=== PATIENT | male | born 1950 | race Caucasian/White ===

== ENCOUNTER → 2016-08-07 | Outpatient (CLI) | payer OTHER | LOC: FIMAGING 10:10 | PROVIDERS: ATTEND Neurological Surgery | DX: M54.16 Radiculopathy, lumbar region (principal); M43.16 Spondylolisthesis, lumbar region; Z98.1 Arthrodesis status ==

== ENCOUNTER → 2017-05-14 | Outpatient (CLI) | payer OTHER | LOC: FIMAGING 10:36 | PROVIDERS: ATTEND Neurological Surgery | DX: M43.16 Spondylolisthesis, lumbar region (principal); Z98.1 Arthrodesis status ==

== ENCOUNTER → 2017-06-29 | Outpatient (CLI) | payer OTHER ==
[~2017-06-29] MED LIST: GADOBUTROL 10 ML VIAL IVP ONE
== END ==
LOC: FIMAGING 10:11
PROVIDERS: ATTEND Physician Assistant Surgical
DX: M48.061 Spinal stenosis, lumbar region without neurogenic claudication (principal); M99.73 Connective tissue and disc stenosis of intervertebral foramina of lumbar region; M54.6 Pain in thoracic spine; Z98.1 Arthrodesis status
CPT/HCPCS: 72074; 72158; A9585

== ENCOUNTER 2018-02-18 09:16 | Inpatient (IN) | payer OTHER ==
--- NOTE | 2018-02-18 08:56 | PDANEPAE ---
ANE Past Medical History - Cardiovascular History Hx Hypertension: Yes Hx Arrhythmias: No Hx Chest Pain: No Hx Coronary Artery / Peripheral Vascular Disease: No Hx CHF / Valvular Disease: Yes Hx Palpitations: No Cardiovascular History Comment: benign heart murmur. - Pulmonary History Hx COPD: No Hx Asthma/Reactive Airway Disease: No Hx Recent Upper Respiratory Infection: No Hx Oxygen in Use at Home: No Hx Sleep Apnea: No Sleep Apnea Screening Result - Last Documented: Positive Pulmonary History Comment: Chronic sinus jaswinder & drainage. 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 - Cancer History Hx Cancer: No - Congenital Disorder History Hx Congenital Disorders: No - GI History GERD: no Hx Gastrointestinal Disorders: No - Other Health History Other Health History: Ringing both ears. 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 Several missing teeth. - Chronic Pain History Chronic Pain: Yes (back, joints.) - Surgical History Prior Surgeries: lumbar surgery 2015. 1986-R knee scope. 1991-Growth removed chest. 1998-R ing hernia. 2012-growth L axilla. ANE Review of Systems Review of Systems: - Exercise capacity Exercise capacity: >=4 METS, limited by disability METS (RN): 4 METS ANE Patient History - Allergies Allergies/Adverse Reactions: Sulfa (Sulfonamide Antibiotics) Allergy (Intermediate, Verified 05/18/14 11:14) Flushing horse serum Allergy (Mild, Uncoded 05/18/14 11:14) Unknown - Home Medications Home Medications: Aspirin [Aspirin 81mg (*)] 81 mg PO DAILY 02/05/18 [Last Taken 02/11/18] Cetirizine [ZyrTEC 10 mg (*)] 10 mg PO DAILY 02/05/18 [Last Taken 02/17/18 09:00 ] Cholecalciferol Vit D3 [Vitamin D3 2000 units tab (OTC)] 2,000 units PO DAILY [Last Taken 02/11/18] Cyclobenzaprine [Flexeril 10 MG (*)] 10 mg PO HS 02/05/18 [Last Taken 02/17/18] Dextroamphetamine/Amphetamine [Adderall Xr 25 mg Capsule] 50 mg PO DAILY [Last Taken 02/17/18 09:00] Fluticasone Nasal [Flonase Nasal [place] (RX)] 2 sprays NASAL HS 02/05/18 [Last Taken 02/17/18] Herbals/Supplements -Info Only 1 ea PO DAILY 02/05/18 [Last Taken 02/11/18] Lisinopril [Zestril 20 mg (*)] 20 mg PO BID 02/05/18 [Last Taken 02/17/18 08:00] Magnesium Oxide [Magnesium Oxide 400 mg (*)] 400 mg PO DAILY@12 02/05/18 [Last Taken 02/11/18] Melatonin [Melatonin 5 mg] 5 mg PO HS 02/05/18 [Last Taken 02/17/18] Naproxen Sodium [Naproxen Cr] 500 mg PO BID 02/05/18 [Last Taken 02/11/18] [place]-3 Fatty Acids [Fish Oil 1000 mg (*)] 1,000 mg PO DAILY 02/05/18 [Last Taken 02/11/18] Rosuvastatin Calcium [Crestor 10mg (RX)] 10 mg PO HS 02/05/18 [Last Taken ] Tamsulosin HCl [Flomax 0.4 MG (*)] 0.4 mg PO BID 02/05/18 [Last Taken 02/18/18 08:00] Vitamin B Complex [Vitamin B Complex (OTC)] 1 each PO HS 02/05/18 [Last Taken ] - Anes Hx Anes Hx: no prior problems - Smoking Hx Smoking Status: Never smoked Marijuana use: No - Alcohol Use Alcohol Use: Occasionally - Family Anes Hx Family Anes Hx: neg - N/A Family Hx Anesthesia Complications: none ANE Labs/Vital Signs - Vital Signs Height: 170.18 cm Weight: 90.718 kg ANE Physical Exam - Airway Neck exam: FROM Mallampati Score: Class 1 Mouth exam: normal dental/mouth exam - Pulmonary Pulmonary: no respiratory distress, no rales or rhonchi, clear to auscultation - Cardiovascular Cardiovascular: regular rate and rhythym, no murmur, rub, or gallop - ASA Status ASA Status: II ANE Anesthesia Plan Anesthesia Plan: general endotracheal anesthesia Total IV Anesthesia: No
[~2018-02-18 09:16] MED LIST changes: -GADOBUTROL 10 ML VIAL IVP ONE; +TRANEXAMIC ACID 1,000 MG in NS 100 ML IV ONE
[2018-02-18] MEDS ORDERED: BUPIVACAINE 0.25% 30 ML SDV ONE (09:17)
[2018-02-18] MEDS ORDERED: THROMBIN (BOVINE) 20,000 UNIT VIAL TP ONE (09:17)
[2018-02-18] MEDS ORDERED: CITRATE DEXTROSE SOLN 500 ML BAG ONE (09:17)
[2018-02-18] MEDS ORDERED: CHLORHEXIDINE GLUC HIBICLENS 118 ML BTL TP ONE (09:17)
[2018-02-18] MEDS ORDERED: EPINEPHrine 1 MG/ML INJ ONE (09:18)
[2018-02-18] MEDS ORDERED: BACITRACIN 50,000 UNITS/10 ML SYR IRR ONE ×2 (09:18→13:34)
[2018-02-18] MEDS ORDERED: GABAPENTIN 300 MG CAP PO ONE (09:26)
[2018-02-18] MEDS ORDERED: fentaNYL 50 MCG in SYRINGE INTRATHECAL 1 SYR IT ONE (09:26)
[2018-02-18] MEDS ORDERED: ACETAMINOPHEN 500 MG TAB PO ONE (09:26)
[2018-02-18] MEDS ORDERED: ceFAZolin 2 GM/DEXTROSE 100 ML IV ONE (09:26)
[2018-02-18] MEDS ORDERED: morphINE PF 0.2 MG in SYRINGE INTRATHECAL 1 SYR IT ONE (09:26)
[2018-02-18] MEDS ORDERED: LR 1,000 ML IV ONE (09:27)
[2018-02-18] MEDS ORDERED: LIDOCAINE 1% 2 ML INJ ID PRN (09:27)
[2018-02-18] MEDS ORDERED: REMIFENTANIL HCL 1 MG VIAL ONE ×2 (09:44→13:20)
--- NOTE | 2018-02-18 09:54 | PDHPUP ---
History & Physical Update H&P update statement: This history and physical update is based on an assessment of the patient which was completed after admission or registration (within 24 hours), but prior to the surgery/procedure. H&P update: H&P reviewed & patient examined, no change in patient's condition since H&P completed
[2018-02-18] MEDS ORDERED: ROCURONIUM 50 MG/5 ML VIAL ONE (10:33)
[2018-02-18] MEDS ORDERED: fentaNYL 100 MCG/2 ML INJ ONE (10:33)
[2018-02-18] MEDS ORDERED: ONDANSETRON 4 MG/2 ML VIAL ONE (10:33)
[2018-02-18] MEDS ORDERED: DEXAMETHASONE 4 MG/ML VIAL ONE (10:33)
[2018-02-18] MEDS ORDERED: PROPOFOL 200 MG/20 ML VIAL ONE (10:38)
[2018-02-18] MEDS ORDERED: LIDOCAINE 2% 2 ML INJ ONE ×2 (10:38)
[2018-02-18] MEDS ORDERED: THROMBIN (BOVINE) 5,000 UNIT VIAL TP ONE (11:03)
[2018-02-18] MEDS ORDERED: ePHEDrine SULFATE 25 MG/5 ML SYR ONE ×2 (11:16→11:34)
[2018-02-18] MEDS ORDERED: NEOSTIGMINE METHYLSULFATE 5 MG/5 ML SYR ONE (11:16)
[2018-02-18] MEDS ORDERED: PHENYLEPHRINE HCL 100 MCG/ML SYR ONE ×2 (11:25→13:08)
[2018-02-18] MEDS ORDERED: ACETAMINOPHEN 500 MG TAB PO PRN (11:28)
[2018-02-18] MEDS ORDERED: HYDROCODONE/APAP 5/325 TAB PO PRN (11:28)
[2018-02-18] MEDS ORDERED: LR 500 ML IV PRN (11:28)
[2018-02-18] MEDS ORDERED: oxyCODONE IR 5 MG TAB PO PRN (11:28)
[2018-02-18] MEDS ORDERED: NALOXONE HCL 0.4 MG/ML INJ IVP PRN ×2 (11:28→14:49)
[2018-02-18] MEDS ORDERED: fentaNYL 100 MCG/2 ML INJ IVP PRN (11:28)
[2018-02-18] MEDS ORDERED: ENALAPRILAT DIHYDRATE 1.25 MG/ML VIAL IVP PRN (11:28)
[2018-02-18] MEDS ORDERED: ONDANSETRON 4 MG/2 ML VIAL IVP PRN ×2 (11:28→14:49)
[2018-02-18] MEDS ORDERED: PROMETHAZINE HCL 25 MG/ML INJ IVP PRN (11:28)
[2018-02-18] MEDS ORDERED: DIAZEPAM 5 MG/ML 1 ML SYR IVP PRN (11:28)
[2018-02-18] MEDS ORDERED: PHENYLEPHRINE HCL 100 MCG/ML SYR IVP PRN (11:28)
[2018-02-18] MEDS ORDERED: VASOPRESSIN 20 UNIT/ML VIAL ONE (11:37)
[2018-02-18] MEDS ORDERED: PROPOFOL/EMULSION 500 MG/50 ML BOTTLE IV ONE (13:20)
[2018-02-18] MEDS ORDERED: ALBUMIN 5% 250 ML BOTTLE IV ONE (13:21)
[2018-02-18] MEDS ORDERED: PHENYLEPHRINE 10 MG/ML SDV ONE (13:37)
[2018-02-18] MEDS ORDERED: ceFAZolin 1 GM VIAL ONE (13:38)
--- NOTE | 2018-02-18 14:14 | ASMTCMCOM ---
CM Note CM Note Notes: Received a notification from Dottie Acosta at [facility] #[phone] stating they are following patient and able to accept if HH warranted post surgery. Will follow-up with patient when he reaches the floor after surgery. Plan: Potentially home with [facility] Date Signed: 02/18/2018 02:14 PM Electronically Signed By:Kell Salmeron RN
[2018-02-18] MEDS ORDERED: BISACODYL 10 MG SUPP PR PRN (14:49)
[2018-02-18] MEDS ORDERED: ONDANSETRON DISINTEGRATING 4 MG TAB PO PRN (14:49)
[2018-02-18] MEDS ORDERED: LACTULOSE 20 GM/30 ML UDCUP PO PRN (14:49)
[2018-02-18] MEDS ORDERED: MAGNESIUM HYDROXIDE 30 ML UDCUP PO PRN (14:49)
[2018-02-18] MEDS ORDERED: diphenhydrAMINE 25 MG CAP PO PRN (14:49)
[2018-02-18] MEDS ORDERED: morphINE PCA 30 MG/30 ML PCA IV PRN (14:49)
[2018-02-18] MEDS ORDERED: DIAZEPAM 5 MG TAB PO PRN (14:53)
--- NOTE | 2018-02-18 14:58 | SOAPPROG ---
SOAP Progress Note Assessment/Plan: Assessment: 68 yo M sp L4/5 hardware removal, L2/3, L3/4 TLIF, L2-5 fusion Plan: stable PT/OT to 3N please call with neuro changes 02/18/18 14:54 Subjective: + back pain, no leg pain Objective: Vital Signs Temp Pulse Resp BP Pulse Ox 36.8 C 85 20 149/92 H 94 02/18/18 10:27 02/18/18 10:27 02/18/18 10:27 02/18/18 10:27 02/18/18 10:27 somnolent PERRL, no facial droop BENY x 4 + light touch ICD10 Worksheet Patient Problems: Problems Problem Status Onset Fusion of spine of lumbar region Acute - ICD10 Problem Qualifiers (1) Fusion of spine of lumbar region
[2018-02-18] MEDS ORDERED: NS 1,000 ML IV SCH (15:00)
--- NOTE | 2018-02-18 15:01 | POSTANESTH ---
Post Anesthetic Evaluation Cardiovascular Status: Normal, Stable, Other, See Comment (sinus tachycardia 101 -108. normal BP) Respiratory Status: Normal, Stable Level of Consciousness/Mental Status: Can Participate in Eval Pain Control: Adequate, Prn Tx Ordered Nausea/Vomiting Control: Adequate, Prn Tx Ordered Complications Possibly Related to Anesthesia: None Noted
--- NOTE | 2018-02-18 15:04 | GOP ---
DATE OF OPERATION: 02/18/2018 SURGEON: Jules Weiss MD NEUROSURGEON: Jules Weiss MD FORMS EXAMINER: SHAREE Tenorio ANESTHESIA: General endotracheal. PREOPERATIVE DIAGNOSIS: Severe adjacent level degeneration and critical spinal stenosis at L2-3 and L3-4. Status post prior L4-5 decompression stabilization with instrumentation. Intractable back catrachita n and left, greater than right lower extremity radicular and neurogenic claudication symptoms. Faile d conservative care. POSTOPERATIVE DIAGNOSIS: Severe adjacent level degeneration and critical spinal stenosis at L2-3 and L3-4. Status post prior L4-5 decompression stabilization with instrumentation. Intractable back pa in and left, greater than right lower extremity radicular and neurogenic claudication symptoms. Fail ed conservative care. PROCEDURE PERFORMED: Removal of posterior nonsegmental (pedicle screw) fixation at L4-5 with explora tion of spinal fusion at that level and re-instrumentation with posterior segmental (pedicle screw an d axle device) fixation from L2-L5. Left-sided far lateral transpedicular decompressions at the L2-3 and L3-4 levels with a redo left L4-5 posterior hemilaminectomy, facetectomy, and foraminotomy. L2- 3 and L3-4 posterior/transforaminal lumbar interbody fusion with 2 structural PEEK interbody spacers, local autograft and bone morphogenic protein at each level. L2-L5 posterolateral fusion with local autograft, bone morphogenic protein and morselized allograft. Use of intraoperative microscopy fluor oscopy and computer volumetric stereotactic navigation with intraoperative neurophysiologic testing. Injection of intrathecal narcotic analgesics and subcutaneous and intramuscular local anesthesia for postoperative pain control. FINDINGS: ESTIMATED BLOOD LOSS: 300 cc. INDICATIONS: The patient is a 68-year-old male with intractable low back pain and left greater than right lower extremity radicular and neurogenic claudication symptoms, secondary to severe adjacent le mahsa degeneration at the L2-3 and L3-4 levels, status post prior L4-5 decompression and fusion with st abilization and instrumentation. The patient has failed extensive conservative care and presents now for surgical decompression and stabilization at the adjacent levels and removal and replacement of h ardware. DESCRIPTION OF PROCEDURE: After informed consent was obtained, the patient was taken to the operatin g room and placed in the prone position on the Carlton table. The lumbosacral area was prepped and d raped in sterile fashion, and after fluoroscopic localization of the correct level, the subcutaneous and intramuscular tissues were infiltrated with local anesthesia. A midline linear incision was then created over the L2 to L5 areas. This was carried down to the fas cial layer, which was then incised using monopolar electrocautery, and carried in the subperiosteal p marysol along the spinous processes and lamina bilaterally. Intraoperative fluoroscopy was again utiliz ed to verify the correct levels. Following this, the prior instrumentation was carefully exposed and removed at L4-5 (pedicle screws a nd yumiko). The axle device was left in place. The microscope was then brought in and left-sided far l ateral transpedicular decompressions were performed at the L2-3 and L3-4 levels with a redo posterior hemilaminectomy and foraminotomy at the L4-5 level. The dissection was carried out over the facet j oints at these levels. The [employer] neuronavigational system was then brought in and using computer volumetric stereotactic n avigation, pedicle screws were placed at L2, L3, and L4 bilaterally and a replacement screw at L5 on the left. The short rods were individually placed first at L2-3 and then at L3-4, during which time, they were under distraction and complete diskectomies were performed with preparation of endplates a nd placement of 2 structural PEEK interbody spacers, local autograft and bone morphogenic protein at each level for L2-3 and L3-4 posterior/transforaminal lumbar interbody fusions. The short rods were removed and longer rods were then placed extending from L2-L5, and a slight amount of compression was placed across the interspaces to facilitate bony union and to minimize the potential for posterior g raft migration. The wound was copiously irrigated with antibiotic irrigation. An axial device was then placed at the L2-3 level for added fixation given that we placed smaller, weaker screws at the L2 levels bilateral ly (5.5 mm diameter). The remaining facet joints and lamina were extensively decorticated from L2 to L5, and the residual local autograft, along with bone morphogenic protein and morselized allograft w as placed out laterally from L2 to L5 for posterolateral fusion. 200 mcg of Duramorph, along with 50 mcg of fentanyl were then injected intrathecally. The subcutaneo us and intramuscular tissues were also re-infiltrated with local anesthesia for postoperative pain co ntrol. A drain was placed, and after re-verification of good position of the screws, rods, interbody spacers, and interspinous process clamp using biplane fluoroscopy, the drain was placed, and the wou nd was closed in a layered fashion using interrupted Vicryl sutures, followed by Steri-Strips on the skin. COMPLICATIONS: None. DISPOSITION: The patient is currently in the process of being repositioned for extubation. /[id number]/MODL
--- NOTE | 2018-02-18 15:04 | PDMN ---
Medical Necessity Medical necessity: 68 yo s/p L2-5 Fusion w/ hardware removal, CPT 62867 MCG S530 Removal of Posterior Spinal Instrumentation and 18253 MCG S820 Lumbar Fusion pending, IP Only
[2018-02-18] MEDS: POLYETHYLENE GLYCOL 3350 17 GM PKT PO SCH ×2 (17:31→21:13)
[2018-02-18] MEDS: morphINE SR 15 MG TAB PO SCH (21:11)
[2018-02-18] MEDS: FAMOTIDINE 20 MG TAB PO SCH (21:11)
[2018-02-18] MEDS: TAMSULOSIN HCL 0.4 MG CAP PO SCH (21:12)
[2018-02-18] MEDS: LISINOPRIL 20 MG TAB PO SCH (21:12)
[2018-02-18] MEDS: SENNOSIDES/DOCUSATE SODIUM TAB PO SCH (21:13)
[2018-02-18] MEDS: ROSUVASTATIN CALCIUM 10 MG TAB PO SCH (21:13)
[2018-02-18] MEDS: ceFAZolin 2 GM/DEXTROSE 100 ML IV SCH (21:17)
[2018-02-18] MEDS: FLUTICASONE NASAL 120 SPRAYS/16 GM MDI EACHNARE SCH (21:20)
[2018-02-19] MEDS: ceFAZolin 2 GM/DEXTROSE 100 ML IV SCH (05:06)
[2018-02-19 05:12] LABS: PLATELET COUNT 231 10^3/uL (150-400)
--- NOTE | 2018-02-19 08:44 | SOAPPROG ---
SOAP Progress Note Assessment/Plan: Assessment: 68 yo M POD #1 L4/5 hardware removal, L2/3, L3/4 TLIF, L2-5 fusion Plan: neuro: stable and doing well overall :) PT/OT LSO brace when out of bed scd/gt/lovenox for dvt prophylaxis post op x-rays pending please call with neuro changes 02/18/18 14:54 02/19/18 08:43 Subjective: leg pain better, some back pain, no weakness. Objective: Vital Signs Temp Pulse Resp BP Pulse Ox 37.0 C 74 18 102/62 96 02/19/18 07:47 02/19/18 07:47 02/19/18 07:47 02/19/18 07:47 02/19/18 07:47 Laboratory Results 02/19/18 04:37 02/19/18 04:37 02/18/18 02/19/18 02/20/18 05:59 05:59 05:59 Intake Total 4120 Output Total 2305 765 Balance 1815 -765 AAOx4, +FC PERRL, EOMI, no facial droop 5/5 + light touch C/D/I ICD10 Worksheet Patient Problems: Problems Problem Status Onset Fusion of spine of lumbar region Acute - ICD10 Problem Qualifiers (1) Fusion of spine of lumbar region
[2018-02-19] MEDS: SENNOSIDES/DOCUSATE SODIUM TAB PO SCH ×2 (09:26→20:45)
[2018-02-19] MEDS: FAMOTIDINE 20 MG TAB PO SCH ×2 (09:27→20:45)
[2018-02-19] MEDS: CETIRIZINE 10 MG TAB PO SCH (09:27)
[2018-02-19] MEDS: TAMSULOSIN HCL 0.4 MG CAP PO SCH ×2 (09:28→20:45)
[2018-02-19] MEDS: morphINE SR 15 MG TAB PO SCH ×2 (09:28→20:45)
[2018-02-19] MEDS: LISINOPRIL 20 MG TAB PO SCH ×2 (09:29→20:45)
[2018-02-19] MEDS: DEXTROAMPHETAMINE PO SCH (09:31)
[2018-02-19] MEDS: AMPHETAMINE PO SCH (09:31)
[2018-02-19] MEDS: POLYETHYLENE GLYCOL 3350 17 GM PKT PO SCH ×3 (09:31→20:45)
[2018-02-19] MEDS: ENOXAPARIN 40 MG/0.4 ML SYR SC SCH (09:44)
--- NOTE | 2018-02-19 11:19 | ASMTCMCOM ---
CM Note CM Note Notes: Pt had planned surgery for lumbar DJD and stenosis. Spoke with pt and spouse about HHC, they decline. Pt reports this is his second back surgery and he feels comfortable going to outpatient PT when MD rec. PT rec home/outpatient, OT rec home. Anticipate pt will d/c when medically stable. Likely no CM d/c needs. Date Signed: 02/19/2018 11:19 AM Electronically Signed By:DONNELL Gil
[2018-02-19] MEDS: MAGNESIUM OXIDE 400 MG TAB PO SCH (12:40)
[2018-02-19] MEDS: FLUTICASONE NASAL 120 SPRAYS/16 GM MDI EACHNARE SCH (20:45)
[2018-02-19] MEDS: ROSUVASTATIN CALCIUM 10 MG TAB PO SCH (20:45)
[2018-02-19] MEDS: MELATONIN 5 MG PO SCH (20:45)
[2018-02-20] MEDS: oxyCODONE IR 5 MG TAB PO PRN ×5 (04:22→20:56)
[2018-02-20] MEDS: METHOCARBAMOL 750 MG TAB PO PRN ×3 (04:22→16:20)
--- NOTE | 2018-02-20 08:08 | SOAPPROG ---
SOAP Progress Note Assessment/Plan: Assessment: 68 yo M POD #2 L4/5 hardware removal, L2/3, L3/4 TLIF, L2-5 fusion Plan: neuro: stable and doing well overall :) PT/OT LSO brace when out of bed scd/gt/lovenox for dvt prophylaxis post op x-rays show good position of the hardware please call with neuro changes 02/18/18 14:54 02/19/18 08:43 02/20/18 08:07 Subjective: continued back pain, some pain in left thigh after catching foot while walking yesterday. Objective: Vital Signs Temp Pulse Resp BP Pulse Ox 37.2 C 84 17 113/73 91 L 02/20/18 07:44 02/20/18 07:44 02/20/18 07:44 02/20/18 07:44 02/20/18 07:44 Laboratory Results 02/19/18 04:37 02/19/18 04:37 02/19/18 02/20/18 02/21/18 05:59 05:59 05:59 Intake Total 4120 250 Output Total 2305 1445 Balance 1815 -1195 AAOx4, +FC PERRL, EOMI, no facial droop 5/5 + light touch C/D/I ICD10 Worksheet Patient Problems: Problems Problem Status Onset Fusion of spine of lumbar region Acute - ICD10 Problem Qualifiers (1) Fusion of spine of lumbar region
[2018-02-20] MEDS: morphINE SR 15 MG TAB PO SCH ×2 (08:12→20:56)
[2018-02-20] MEDS: SENNOSIDES/DOCUSATE SODIUM TAB PO SCH ×2 (08:12→20:56)
[2018-02-20] MEDS: ENOXAPARIN 40 MG/0.4 ML SYR SC SCH (08:12)
[2018-02-20] MEDS: POLYETHYLENE GLYCOL 3350 17 GM PKT PO SCH ×3 (08:13→20:55)
[2018-02-20] MEDS: TAMSULOSIN HCL 0.4 MG CAP PO SCH ×2 (08:13→20:56)
[2018-02-20] MEDS: FAMOTIDINE 20 MG TAB PO SCH ×2 (08:13→20:56)
[2018-02-20] MEDS: CETIRIZINE 10 MG TAB PO SCH (08:13)
[2018-02-20] MEDS: LISINOPRIL 20 MG TAB PO SCH ×2 (08:13→20:57)
[2018-02-20] MEDS: AMPHETAMINE PO SCH (08:19)
[2018-02-20] MEDS: DEXTROAMPHETAMINE PO SCH (08:19)
[2018-02-20] MEDS: MAGNESIUM OXIDE 400 MG TAB PO SCH (12:19)
[2018-02-20] MEDS: MELATONIN 5 MG PO SCH (20:55)
[2018-02-20] MEDS: FLUTICASONE NASAL 120 SPRAYS/16 GM MDI EACHNARE SCH (20:55)
[2018-02-20] MEDS: ROSUVASTATIN CALCIUM 10 MG TAB PO SCH (20:56)
[2018-02-21] MEDS: POLYETHYLENE GLYCOL 3350 17 GM PKT PO SCH ×2 (08:23→16:30)
[2018-02-21] MEDS: METHOCARBAMOL 750 MG TAB PO PRN (08:23)
[2018-02-21] MEDS: ENOXAPARIN 40 MG/0.4 ML SYR SC SCH (08:23)
[2018-02-21] MEDS: morphINE SR 15 MG TAB PO SCH (08:23)
[2018-02-21] MEDS: SENNOSIDES/DOCUSATE SODIUM TAB PO SCH (08:24)
[2018-02-21] MEDS: LISINOPRIL 20 MG TAB PO SCH (08:24)
[2018-02-21] MEDS: oxyCODONE IR 5 MG TAB PO PRN (08:24)
[2018-02-21] MEDS: CETIRIZINE 10 MG TAB PO SCH (08:24)
[2018-02-21] MEDS: TAMSULOSIN HCL 0.4 MG CAP PO SCH (08:24)
[2018-02-21] MEDS: FAMOTIDINE 20 MG TAB PO SCH (08:24)
--- NOTE | 2018-02-21 08:39 | NEUSURGPN ---
Assessment/Plan: Assessment: 68 yo M POD #3 L4/5 hardware removal, L2/3, L3/4 TLIF, L2-5 fusion Plan: neuro: stable and doing well overall PT/OT LSO brace when out of bed scd/gt/lovenox for dvt prophylaxis ROSEANNE drain - leave in place. Will send home with drain per Dr Martini post op x-rays show good position of the hardware Dispo: likely home today if doing well please call with neuro changes D/w Dr Martini Subjective: Pt resting in chair, having some slight left thigh pain Objective: AAOx3 NAD VSS MAEx4 Motor 5/5 BLE +LT Urinary Catheter in Place: No Catheter Insertion Date: 02/18/18 - Physician Discussed Patient with : Abhishek Neurosurgery Physical Exam - Vitals, I&O, Labs I and O 02/20/18 02/21/18 02/22/18 05:59 05:59 05:59 Intake Total 250 450 Output Total 1445 120 Balance -1195 330 Intake: Oral (ml) 250 450 Output: Urine (ml) 950 Catheter 650 Urinal 300 ROSEANNE Drain Output (ml) 495 120 #1 Left Posterior Back 495 120 Other: Intake Quantity Yes Sufficient Number of Voids Catheter 1 Urinal 3 Vital Signs Temp Pulse Resp BP Pulse Ox 37.0 C 89 16 117/72 97 02/21/18 07:34 02/21/18 07:34 02/21/18 07:34 02/21/18 08:24 02/21/18 07:34 Laboratory Results 02/19/18 04:37 02/19/18 04:37 ICD10 Worksheet Patient Problems: Problems Problem Status Onset Fusion of spine of lumbar region Acute
[2018-02-21] MEDS: AMPHETAMINE PO SCH (08:54)
[2018-02-21] MEDS: DEXTROAMPHETAMINE PO SCH (08:54)
[2018-02-21] MEDS: MAGNESIUM OXIDE 400 MG TAB PO SCH (13:36)
[2018-02-21 15:30] VITALS: BP 117/64
--- NOTE | 2018-02-21 15:30 | ASMTLACE ---
LACE Length of stay for Answers: 4-6 days current admission Acuity / Level of Answers: Yes Care: Did the patient have an inpatient admission? Comorbidities - select Answers: Congestive heart failure all that apply Opioid dependence / Chronic pain Other Notes: HTN; HLD # of Emergency department Answers: 0 visits in the last 6 months Score: 14 Date Signed: 02/21/2018 03:29 PM Electronically Signed By:DONNELL Gil
== END 2018-02-21 16:50 | disposition home or self-care (01) | DRG 455 ==
LOC: F3N 09:16
PROVIDERS: ADMIT Neurological Surgery; ATTEND Neurological Surgery
DX: M48.062 Spinal stenosis, lumbar region with neurogenic claudication (principal); I10 Essential (primary) hypertension; G47.30 Sleep apnea, unspecified; M43.16 Spondylolisthesis, lumbar region; Z98.1 Arthrodesis status
CPT/HCPCS: 97161-GP; 97165-GO; C1713; C1762; G8978-GP-CI; G8979-GP-CI; G8980-GP-CI; G8987-GO-CI; G8988-GO-CH; G8989-GO-CH; J0171; J0690; J1100; J1650; J2274; J2370; J2405; J2704; J2710; J3010; P9041

== ENCOUNTER → 2018-06-04 | Outpatient (CLI) | payer OTHER | LOC: FIMAGING 11:29 | PROVIDERS: ATTEND Physician Assistant Surgical | DX: Z98.1 Arthrodesis status (principal) ==

== ENCOUNTER → 2018-08-28 | Outpatient (CLI) | payer OTHER | LOC: FIMAGING 12:01 | PROVIDERS: ATTEND Physician Assistant Surgical | DX: Z98.1 Arthrodesis status (principal) ==